=== PATIENT | female | born 1990 | race Caucasian/White ===

== ENCOUNTER 2017-10-19 16:39 | Inpatient (IN) | payer OTHER ==
[~2017-10-19] VITALS: Ht 170.2 cm; Wt 64.4 kg
[2017-10-19] MEDS ORDERED: OXYTOCIN 30 UNITS/LACT RINGERS 500 ML IV ONE (16:49)
[2017-10-19] MEDS ORDERED: RINGERS SOLUTION,LACTATED 1,000 ML IV PRN (16:49)
[2017-10-19] MEDS ORDERED: CITRIC ACID/SODIUM CITRATE 30 ML SOLUTION UDCUP PO PRN (17:00)
[2017-10-19] MEDS ORDERED: METOCLOPRAMIDE HCL 5 MG/ML 2 ML VIAL IVP PRN (17:00)
[2017-10-19] MEDS ORDERED: LIDOCAINE HCL/PF 1% 30 ML VIAL INJ PRN (17:00)
[2017-10-19 17:26] VITALS: BP 112/55
[2017-10-19] MEDS ORDERED: PREN1TAB80 PO (17:28)
[2017-10-19] MEDS ORDERED: IRON18TA PO (17:28)
[2017-10-19 17:30] LABS: BASOPHILS % (AUTO) 0.4 % (0.0-2.0); EOSINOPHILS % (AUTO) 0.8 % (1.0-6.0); HEMATOCRIT 33.5 % (36-46); HEMOGLOBIN 11.7 g/dL (12.0-16.0); LYMPHOCYTES # (AUTO) 2.3 K/uL (1.0-4.8); LYMPHOCYTES % (AUTO) 25.4 % (22.0-44.0); MEAN CORPUSCULAR VOLUME 97 fL (80-100); MONOCYTES # (AUTO) 0.4 K/uL (0.1-1.0); MONOCYTES % (AUTO) 4.7 % (2.0-9.0); NEUTROPHILS # (AUTO) 6.3 K/uL (1.8-7.7); NEUTROPHILS % (AUTO) 68.7 % (40.0-70.0); RED BLOOD CELL COUNT(AUTO) 3.45 MIL/uL (4.00-5.20); RED CELL DISTRIBUTION WIDTH 13.3 % (11.5-14.5); WHITE BLOOD COUNT (AUTO) 9.2 K/uL (4.5-11.0)
[2017-10-19] MEDS ORDERED: OXYTOCIN 30 UNITS/LACT RINGERS 500 ML IV PRN (17:42)
[2017-10-19] MEDS: RINGERS SOLUTION,LACTATED 1,000 ML IV SCH (17:55)
[2017-10-19] MEDS ORDERED: OXYGEN THERAPY IH SCH (20:00)
[2017-10-19] MEDS: FentaNYL CITRATE-PF 100 MCG/2 ML VIAL IVP PRN ×2 (23:35→23:41)
[2017-10-20] MEDS ORDERED: LIDOCAINE HCL/PF 2% 5 ML VIAL ONE (00:09)
[2017-10-20] MEDS ORDERED: BUPIVACAINE HCL/PF 0.25% 10 ML VIAL ONE (00:09)
[2017-10-20] MEDS ORDERED: FentaNYL/BUPIV 0.125%/NS/PF 200 ML ED ONE (00:09)
[2017-10-20] MEDS: FentaNYL CITRATE-PF 100 MCG/2 ML VIAL IVP PRN (00:14)
[2017-10-20] MEDS: RINGERS SOLUTION,LACTATED 1,000 ML IV SCH (00:49)
[2017-10-20] MEDS ORDERED: FentaNYL/BUPIV 0.125%/NS/PF 200 ML ED PRN (00:50)
[2017-10-20] MEDS ORDERED: ONDANSETRON HCL 4 MG/2 ML VIAL IVP PRN (01:00)
[2017-10-20] MEDS ORDERED: DiphenhydrAMINE HCL 50 MG/ML VIAL IVP PRN (01:00)
[2017-10-20] MEDS ORDERED: NALBUPHINE HCL 10 MG/ML VIAL IVP PRN ×2 (01:00)
[2017-10-20] MEDS ORDERED: PROMETHAZINE HCL 12.5 MG in SODIUM CHLORIDE 0.9% 50 ML IV PRN (01:00)
[2017-10-20] MEDS ORDERED: OXYTOCIN 30 UNITS/LACT RINGERS 500 ML IV ONE (06:58)
[2017-10-20] MEDS ORDERED: BENZOCAINE 20%/MENTHOL 56 GM SPRAY CANISTER TP PRN (07:00)
[2017-10-20] MEDS ORDERED: MAGNESIUM HYDROXIDE SUSPENSION 30 ML UDCUP PO PRN (07:00)
[2017-10-20] MEDS ORDERED: LANOLIN 7 GM OINTMENT TP PRN (07:00)
[2017-10-20] MEDS ORDERED: GLYCERIN/WITCH HAZEL LEAF 40 PADS JAR TP PRN (07:00)
[2017-10-20] MEDS ORDERED: OxyCODONE HCL/ACETAMINOPHEN 5-325 MG TABLET PO PRN ×2 (07:00)
[2017-10-20] MEDS ORDERED: LIDOCAINE HCL/PF 1% 30 ML VIAL INJ PRN (07:00)
[2017-10-20] MEDS: IBUPROFEN 800 MG TABLET PO PRN (15:34)
[2017-10-21 05:56] LABS: BASOPHILS % (AUTO) 0.1 % (0.0-2.0); HEMATOCRIT 29.4 % (36-46); HEMOGLOBIN 10.2 g/dL (12.0-16.0); LYMPHOCYTES # (AUTO) 3.6 K/uL (1.0-4.8); LYMPHOCYTES % (AUTO) 19.4 % (22.0-44.0); MEAN CORPUSCULAR HEMOGLOBIN 34.2 pg (26.0-34.0); MEAN CORPUSCULAR HGB CONC 34.6 G/dL (31.0-37.0); MEAN CORPUSCULAR VOLUME 99 fL (80-100); MONOCYTES # (AUTO) 0.7 K/uL (0.1-1.0); MONOCYTES % (AUTO) 3.9 % (2.0-9.0); NEUTROPHILS % (AUTO) 75.6 % (40.0-70.0); RED BLOOD CELL COUNT(AUTO) 2.97 MIL/uL (4.00-5.20); RED CELL DISTRIBUTION WIDTH 13.6 % (11.5-14.5); WHITE BLOOD COUNT (AUTO) 18.6 K/uL (4.5-11.0)
[2017-10-21] MEDS: IBUPROFEN 800 MG TABLET PO PRN (08:58)
[2017-10-21] MEDS ORDERED: DSS100 PO (11:15)
[2017-10-21] MEDS ORDERED: IBUP-2071 PO (11:15)
== END 2017-10-21 12:15 | disposition home or self-care (01) | DRG 775 ==
LOC: 4S 16:39 → OBSVTOIN 16:39
PROVIDERS: ADMIT Obstetrics & Gynecology; ATTEND Obstetrics & Gynecology
PROC: 10E0XZZ Delivery of Products of Conception, External Approach (ICD-10-PCS; principal; 2017-10-20)
PROC: 0KQM0ZZ Repair Perineum Muscle, Open Approach (ICD-10-PCS; 2017-10-20)
PROC: 3E0R3BZ Introduction of Anesthetic Agent into Spinal Canal, Percutaneous Approach (ICD-10-PCS; 2017-10-20)
PROC: 00HU33Z Insertion of Infusion Device into Spinal Canal, Percutaneous Approach (ICD-10-PCS; 2017-10-20)
DX: O70.1 Second degree perineal laceration during delivery (principal); Z37.0 Single live birth; Z3A.40 40 weeks gestation of pregnancy
CPT/HCPCS: 86850; 86900; 86901; J2590; J3010; J3490; J7120